=== PATIENT | female | born 1965 | race African-American/Black ===

== ENCOUNTER 2022-07-08 19:34 | Emergency (ER) | payer SELFPAY ==
[~2022-07-08] VITALS: Ht 172.7 cm; Wt 84.0 kg
[2022-07-08] MEDS ORDERED: MORPHINE SULFATE 4 MG/ML CPJ (NOT FOR IM USE) IV STA (20:20)
[2022-07-08] MEDS ORDERED: ONDANSETRON HCL 4MG/2ML INJ IV STA (20:20)
[2022-07-08] MEDS ORDERED: SODIUM CHLORIDE 0.9% 1,000 ML IV ONE (20:30)
[2022-07-08 23:11] LABS: BASOPHILS % 0.5 % (0.0-2.0); EOSINOPHILS % 0.6 % (0.0-5.0); HEMATOCRIT. 41.7 % (36.0-48.0); HEMOGLOBIN. 13.5 g/dL (12.0-16.0); LYMPHOCYTES % 19.6 % (20.0-50.0); MEAN CORPUSCULAR HEMOGLOBIN 29.8 pg (28.0-32.0); MEAN CORPUSCULAR VOLUME 92.5 fL (81.0-99.0); MEAN PLATELET VOLUME 8.6 fl (7.4-10.4); NEUTROPHILS % 73.3 % (40.0-76.0); PLATELET 318 x1000/uL (130-400); RED BLOOD CELL COUNT 4.51 mill/uL (4.2-5.4); RED CELL DISTRIBUTION WIDTH 12.7 % (11.6-14.6)
[2022-07-08 23:18] LABS: CHLORIDE 107 mEq/L (98-107)
[2022-07-09] MEDS ORDERED: KETOROLAC 15MG/ML VIAL IV ONE
[2022-07-09] MEDS ORDERED: IBUP-2028 MT (00:07)
[2022-07-09 00:42] VITALS: BP 148/100
== END 2022-07-09 01:12 | disposition home or self-care (01) ==
LOC: ER 19:34
DX: R55 Syncope and collapse (principal); M25.561 Pain in right knee; Z96.652 Presence of left artificial knee joint
CPT/HCPCS: 36415; 70450; 71045; 72192; 73560; 73700; 80053; 83880; 84484; 85025; 93005; 96361; 96374; 96375; 99285; J1885; J2270; J2405; J7030; Z7610